=== PATIENT | male | born 1970 | race Caucasian/White ===

== ENCOUNTER 2018-05-16 16:43 | Inpatient (IN) | payer OTHER ==
[~2018-05-16] VITALS: Ht 182.9 cm; Wt 70.7 kg
[2018-05-16] MEDS ORDERED: ONDANSETRON 4 MG INJ IV PRN ×2 (17:00→17:30)
[2018-05-16] MEDS ORDERED: ACETAMINOPHEN 325 MG TAB PO PRN (17:00)
[2018-05-16 17:20] VITALS: Ht 182.9 cm; Wt 70.7 kg
[2018-05-16] MEDS ORDERED: NACL 0.9% 3 ML SYG IV SCH (17:30)
--- NOTE | 2018-05-16 17:54 | HP ---
Date/Time of Note Date/Time of Note DATE: 05/16/18 TIME: 17:39 Assessment/Plan VTE Prophylaxis SCD applied (from Nsg): Yes Pharmacological prophylaxis: NA/contraindicated Pharm contraindication: bleeding Lines/Catheters IV Catheter Type (from Nrsg): [place]ine Lock Assessment/Plan Assessment/Plan 47 yo alcoholic man no major PMH presents with hematemesis and melena #Hematemesis #Melena - Likely upper GI source. - Patient has no stigmata of cirrhosis and supposedly normal INR; esophageal varices unlikely. Based on history I think most likely Marjan-Bowman tears. Possible peptic ulcer disease; although abdomen is completely nontender. - Just in case will start octreotide and protonix gtt. - NPO, IV fluids - GI consulted. #Alcoholism - If labs suspicious for cirrhosis will check RUQ US. - Banana bag - Ativan prn withdrawal. If very high doses will start librium taper. - Last drink last night. - Social work consult #Nicotine use - Patch GI: protonix DVT: SCDs HPI/ROS Admit Date/Time Admit Date/Time 15 April 2018 Hx of Present Illness Mr. Simeon is a pleasant 47 yo alcoholic man who presents with hematemesis and melena. 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 He attributes this to the strain of moving heavy furniture. Vomited about 30 times Monday night. Also developed liquid maroon-colored stool, had several episodes. Monday symptoms had improved but he had PO intolerance; even small volume liquids would cause vomiting. He presented to [facility] Monday. According to verbal s ignout; he was tachy to 131, Hgb was 12.7 INR 1.0. He was started on protonix and octreotide gtt and transferred to [facility] for insurance reasons. The patient drinks heavily; last alcohol was the night prior to admission although he vomited most of it up. Drink malt liquor, on average 10 shots per day. Reports history of alcohol withdrawal seizures but not intubation. He quit for 1.5 years about 2 years ago when a doctor at [facility] told him he had evidence of liver damage. Relapsed a few months ago. ROS Reports one fever the night prior to admission. No chills or night sweats. Reports productive cough for several days. No dyspnea. Denies chest pain/pressure/palpitations. No abdominal pain. No constipation. No dysuria or hematuria. No lightheadedness or vertigo. No vision changes. PMH/Family/Social Past Medical History Alcoholism Medications Current Medications Acetaminophen (Tylenol Tab) 650 mg ER BRIDGE PRN PO .MILD PAIN 1-3 OR TEMP; Start 05/16/18 at 17:00; Stop 05/17/18 at 16:59 IV Flush (NS 3 ml) 3 ml PER PROTOCOL IV ; Start 05/16/18 at 17:30 Ondansetron HCl (Zofran Inj) 4 mg Q6H PRN IV NAUSEA/VOMITING; Start 05/16/18 at 17:30 Octreotide Acetate 1 mg/ Dextrose 100 ml @ 5 mls/hr Q20H IV ; Start 05/16/18 at 18:00; Status UNV Pantoprazole 80 mg/Sodium Chloride 100 ml @ 10 mls/hr Q10H IV ; Start 05/16/18 at 18:00; Status UNV Coded Allergies: No Known Allergy (Unverified , 05/16/18) Past Surgical History Past Surgical Hx: no surgical history Social History 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 Previously rented a house in [place], recently homeless as of 4 days ago. Alcohol Use: heavy (10 shots per day) Smoking Status: Current every day smoker (1 pack per day) Drug Use: marijuana (rarely) Exam/Review of Systems Vital Signs Vitals Vital Signs Date Temp Pulse Resp B/P (MAP) Pulse Ox O2 O2 Flow FiO2 Time Delivery Rate 05/16/18 98.2 94 20 134/91 98 17:20 (105) Exam Exam Gen: Well developed man lying in [place], no acute distress. Eyes: PERRL, no icterus HEENT: Moist mucous membranes. Very poor dentition; almost all teeth have severe caries and he has gingival disease. Neck: No lymphadenopathy, supple. Card: Regular rate and rhythm, no murmurs Pulm: Clear to auscultation bilaterally Abd: Soft, nontender, nondistended. No hepatosplenomegaly. Ext: No cyanosis/clubbing/edema Skin: warm, dry, well perfused. THUAN TAPIA MD May 16, 2018 17:50
[2018-05-16] MEDS ORDERED: LORAZEPAM 2 MG INJ IV PRN (18:00)
[2018-05-16] MEDS ORDERED: MULTIVITAMINS 10 ML, THIAMINE 100 MG, FOLIC ACID 1 MG, MAGNESIUM SULFATE 2 GM in SOD CH... IV ONE (18:00)
[2018-05-16] MEDS ORDERED: OCTREOTIDE 1 MG in DEXTROSE 5% 95 ML IV SCH (18:00)
[2018-05-16] MEDS ORDERED: POTASSIUM CHLORIDE 50 ML IVPB ONE (18:30)
[2018-05-16] MEDS: PANTOPRAZOLE IV 80 MG in SOD CHLORIDE 0.9% 100 ML IV SCH (19:09)
--- NOTE | 2018-05-16 20:45 | ERD ---
ER Documentation Chief Complaint Chief Complaint zeenat lewis from [facility]; blood emesis and stool HPI This is a 47-year-old male who was transferred to be a direct admit from [facility] however no beds were available and therefore came through the emergency department. The patient has a past medical history of alcoholism alcohol withdrawal seizures alcohol cirrhosis and presented to the emergency department brought in by private ambulance after complaining of hematemesis for 1 day. The patient had also developed epigastric pain. The patient did indicate he had been drinking alcohol last drink was at midnight yesterday evening which is roughly 21 hours prior to the arrival at [facility]. They had administered Protonix octreotide and the patient has not had any hematemesis hemoptysis or melanotic stools since then. The patient's INR was 1.0. PT was 12.4. Hemoglobin was 12.7 ROS All systems reviewed and are negative except as per history of present illness. Medications Home Meds No Active Prescriptions or Reported Meds Allergies Allergies: Coded Allergies: No Known Allergy (Unverified , 05/16/18) PMhx/Soc Hx Alcohol Use: Yes Hx Substance Use: No Hx Tobacco Use: No Smoking Status: Current every day smoker (1 pack per day) Physical Exam Vitals Vital Signs Date Temp Pulse Resp B/P (MAP) Pulse Ox O2 O2 Flow FiO2 Time Delivery Rate 05/16/18 98.2 94 20 134/91 98 17:20 (105) Physical Exam Constitutional:Well-developed. Well-nourished. HEENT:Normocephalic. Atraumatic.Pupils were equal round reactive to light. Moist mucous membranes.No tonsillar exudates. No conjunctival pallor Neck: No nuchal rigidity. No lymphadenopathy. No posterior cervical spine tenderness or step-offs. Respiratory: Not using accessory muscles of respiration.Lungs were clear to auscultation bilaterally. No rhonchi. No rales. No wheezing. Cardiovascular: Regular rate regular rhythm.No murmurs. No rubs were appreciated.S1, S2 normal. Distal pulses are palpable 2+ bilaterally. GI: Abdomen was soft. Nontender. Non Distended. No pulsatile abdominal masses or bruits. No rebound. No guarding. Bowel sounds were present and normal. Muscle skeletal: Full range of motion of both the upper and lower extremities bilaterally.Normal muscle tone.No assymetrical calf tenderness or swelling. Skin: No petechia, no purpura. No lesions on the palms or the soles of the feet. No maculopapular rash. NEURO: Patient was alert, awake, orientated x3.No facial droop. Gait not observed as patient felt to weak to ambulate.Speech had regular rate and rhythm. No focal neurological deficits. Result Diagram: 05/16/18 1743 05/16/18 1743 Results 24 hrs Laboratory Tests Test 05/16/18 17:43 White Blood Count 5.1 10^3/ul Red Blood Count 3.37 10^6/ul Hemoglobin 10.7 g/dl Hematocrit 30.9 % Mean Corpuscular Volume 91.7 fl Mean Corpuscular Hemoglobin 31.8 pg Mean Corpuscular Hemoglobin Concent 34.6 g/dl Red Cell Distribution Width 16.3 % Platelet Count 125 10^3/UL Mean Platelet Volume 10.2 fl Immature Granulocytes % 0.400 % Neutrophils % 70.0 % Segmented Neutrophils % (Manual) 71 % Lymphocytes % 18.9 % Lymphocytes % (Manual) 23 % Monocytes % 10.1 % Monocytes % (Manual) 6 % Eosinophils % 0.2 % Basophils % 0.4 % Nucleated Red Blood Cells % 0.0 /100WBC Immature Granulocytes # 0.020 10^3/ul Neutrophils # 3.6 10^3/ul Lymphocytes (Manual) 1.1 10^3/ul Lymphocytes # 1.0 10^3/ul Monocytes # 0.5 10^3/ul Monocytes # (Manual) 0.3 10^3/ul Eosinophils # 0.0 10^3/ul Basophils # 0.0 10^3/ul Nucleated Red Blood Cells # 0.0 10^3/ul Platelet Morphology Comment @See below Hypochromasia 1+ Anisocytosis 1+ Microcytosis 1+ Prothrombin Time 13.0 Sec Prothrombin Time Ratio 1.0 INR International Normalized Ratio 0.97 Activated Partial Thromboplast Time 26.4 Sec Sodium Level 139 mmol/L Potassium Level 2.9 mmol/L Chloride Level 99 mmol/L Carbon Dioxide Level 31 mmol/L Anion Gap 9 Blood Urea Nitrogen 38 mg/dl Creatinine 0.75 mg/dl Est Glomerular Filtrat Rate mL/min > 60 mL/min Glucose Level 101 mg/dl Calcium Level 8.7 mg/dl Phosphorus Level 3.3 mg/dl Magnesium Level 1.5 mg/dl Total Bilirubin 1.4 mg/dl Direct Bilirubin 0.00 mg/dl Indirect Bilirubin 1.4 mg/dl Aspartate Amino Transf (AST/SGOT) 54 IU/L Alanine Aminotransferase (ALT/SGPT) 42 IU/L Alkaline Phosphatase 47 IU/L Total Protein 6.6 g/dl Albumin 3.8 g/dl Globulin 2.80 g/dl Albumin/Globulin Ratio 1.35 Amylase Level 85 U/L Lipase 98 U/L Ethyl Alcohol Level < 10.0 mg/dl Current Medications Medications Dose Sig/Laura Start Time Status Last (Trade) Ordered Route PRN Stop Time Admin Dose Reason Admin Ondansetron 4 mg ER BRIDGE 05/16/18 DC HCl (Zofran PRN IV 17:00 05/16/18 Inj) NAUSEA/VOMITI 17:20 NG 650 mg ER BRIDGE 05/16/18 Acetaminophen PRN PO 17:00 05/17/18 (Tylenol .MILD PAIN 16:59 Tab) 1-3 OR TEMP IV Flush 3 ml PER 05/16/18 (NS 3 ml) PROTOCOL IV 17:30 Ondansetron 4 mg Q6H PRN 05/16/18 HCl (Zofran IV 17:30 Inj) NAUSEA/VOMITI NG Octreotide 100 ml @ 5 Q20H IV 05/16/18 05/16/18 Acetate 1 mls/hr 18:00 19:09 mg/ Dextrose Pantoprazole 100 ml @ Q10H IV 05/16/18 05/16/18 80 mg/Sodium 10 mls/hr 18:00 19:09 Chloride Lorazepam 2 mg Q1H PRN 05/16/18 (Ativan) IV alcohol 18:00 withdrawal symptoms 1,000 ml @ Q2H ONCE 05/16/18 DC Multivitamins 500 mls/hr IV 18:00 05/16/18 10 19:59 ml/Thiamine HCl 100 mg/Folic Acid 1 mg/Magnesium Sulfate 2 gm/ Sodium Chloride Nicotine 1 patch DAILY 05/16/18 (Nicoderm 21 TRANSDERM 18:00 Mg/ 24hr) Sodium 1,000 ml @ [id number] IV 05/16/18 Chloride 75 mls/hr 18:00 Potassium 50 ml @ 50 ONCE ONCE 05/16/18 DC Chloride mls/hr IVPB 18:30 05/16/18 19:29 Procedures/MDM This patient presented to the emergency department to be admitted directly for a gastrointestinal bleed. The patient was hemodynamically stable at this time. IV access had been established. The patient's potassium was low at 2.9. He did receive IV potassium supplementation in the emergency department. The patient's hemoglobin was 10.7. Several hours prior to arrival the patient had hemoglobin of 12.[address] [facility]. Rao kindly came to the bedside and will be admitting the patient. The patient will be going to the telemetry service in serious condition. Departure Diagnosis: Primary Impression: Gastrointestinal hemorrhage GI bleed type/associated pathology: unspecified gastrointestinal hemorrhage type Qualified Codes: K92.2 - Gastrointestinal hemorrhage, unspecified Additional Impression: Hypokalemia Condition: Serious JIMY ALFARO MD May 16, 2018 20:45
[2018-05-16] MEDS: NICOTINE (21 MG/24 HR) PATCH TRANSDERM SCH (22:00)
[2018-05-17] VITALS (21 sets, daily range): BP systolic 100–167; BP diastolic 58–104; PULSE 70–111; RESP 17–24
[2018-05-17] MEDS: SOD CHLORIDE 0.9% 1,000 ML IV SCH ×2 (02:24→07:20)
[2018-05-17] MEDS: PANTOPRAZOLE IV 80 MG in SOD CHLORIDE 0.9% 100 ML IV SCH (04:32)
[2018-05-17] MEDS ORDERED: morphine 2 MG INJ IV PRN (05:30)
[2018-05-17] MEDS: NICOTINE (21 MG/24 HR) PATCH TRANSDERM SCH (09:43)
[2018-05-17] MEDS ORDERED: MAGNESIUM SULFATE 2 GM/50 ML 50 ML IVPB ONE (10:30)
--- NOTE | 2018-05-17 11:00 | PN ---
Date/Time of Note Date/Time of Note DATE: 05/17/18 TIME: 10:57 Assessment/Plan VTE Prophylaxis SCD applied (from Nsg): Yes Pharmacological prophylaxis: NA/contraindicated Pharm contraindication: bleeding Lines/Catheters IV Catheter Type (from Nrsg): Peripheral IV Assessment/Plan Assessment/Plan 47 yo alcoholic man no major PMH presents with hematemesis and melena #Hematemesis #Melena - Likely upper GI source. - Patient has no stigmata of cirrhosis and supposedly normal INR; esophageal varices unlikely. Based on history I think most likely Marjan-Bowman tears. Possible peptic ulcer disease; although abdomen is completely nontender. - On octreotide and protonix gtt. - NPO, IV fluids - GI consulted, plan for EGD today. #Alcoholism - Mild thrombocytopenia with normal INR and albumin. Will check abdominal US for cirrhosis. - Banana bag - Ativan prn withdrawal, not requiring. - Last drink Monday night. - Social work consult #Nicotine use - Patch GI: protonix DVT: SCDs Result Diagram: 05/17/18 0729 05/17/18 07 Subjective 24 Hr Interval Summary Free Text/Dictation Patient reports still having liquid stool last night. Didn't check to see if it was bloody. No alcohol withdrawal symptoms. Has chronic back pain, required IV morphine last night. Plan for EGD today. Exam/Review of Systems Exam Vitals Vital Signs Date Temp Pulse Resp B/P (MAP) Pulse Ox O2 O2 Flow FiO2 Time Delivery Rate 05/17/18 78 09:23 05/17/18 97.6 22 137/95 96 Room Air 07:26 (109) Intake and Output 05/16/18 05/16/18 05/17/18 1515:00 23:00 07:00 OutputOutput Total 350 ml BalanceBalance -350 ml Exam Gen: Well developed man lying in gurney, no acute distress. Eyes: PERRL, no icterus HEENT: Moist mucous membranes. Very poor dentition; almost all teeth have severe caries and he has gingival disease. Neck: No lymphadenopathy, supple. Card: Regular rate and rhythm, no murmurs Pulm: Clear to auscultation bilaterally Abd: Soft, nontender, nondistended. No hepatosplenomegaly. Ext: No cyanosis/clubbing/edema Skin: warm, dry, well perfused. Results Results 24hrs Laboratory Tests Test 05/16/18 17:43 05/17/18 07:29 White Blood Count 5.1 5.0 Red Blood Count 3.37 L 3.31 L Hemoglobin 10.7 L 10.5 L Hematocrit 30.9 L 31.5 L Mean Corpuscular Volume 91.7 95.2 Mean Corpuscular Hemoglobin 31.8 31.7 Mean Corpuscular Hemoglobin Concent 34.6 33.3 Red Cell Distribution Width 16.3 H 16.1 H Platelet Count 125 L 139 L Mean Platelet Volume 10.2 10.9 H Immature Granulocytes % 0.400 0.400 Neutrophils % 70.0 51.9 Segmented Neutrophils % (Manual) 71 Lymphocytes % 18.9 38.0 Lymphocytes % (Manual) 23 Monocytes % 10.1 6.5 Monocytes % (Manual) 6 Eosinophils % 0.2 2.0 Basophils % 0.4 1.2 Nucleated Red Blood Cells % 0.0 0.0 Immature Granulocytes # 0.020 0.020 Neutrophils # 3.6 2.6 Lymphocytes (Manual) 1.1 Lymphocytes # 1.0 1.9 Monocytes # 0.5 0.3 Monocytes # (Manual) 0.3 Eosinophils # 0.0 0.1 Basophils # 0.0 0.1 Nucleated Red Blood Cells # 0.0 0.0 Platelet Morphology Comment @See below Hypochromasia 1+ Anisocytosis 1+ Microcytosis 1+ Prothrombin Time 13.0 Prothrombin Time Ratio 1.0 INR International Normalized Ratio 0.97 Activated Partial Thromboplast Time 26.4 Sodium Level 139 141 Potassium Level 2.9 *L 3.3 L Chloride Level 99 102 Carbon Dioxide Level 31 29 Anion Gap 9 10 Blood Urea Nitrogen 38 H 22 #H Creatinine 0.75 0.72 Est Glomerular Filtrat Rate mL/min > 60 > 60 Glucose Level 101 84 Calcium Level 8.7 8.8 Phosphorus Level 3.3 3.2 Magnesium Level 1.5 L 1.6 L Total Bilirubin 1.4 H 1.3 Direct Bilirubin 0.00 0.00 Indirect Bilirubin 1.4 H 1.3 H Aspartate Amino Transf (AST/SGOT) 54 H 264 #H Alanine Aminotransferase (ALT/SGPT) 42 93 H Alkaline Phosphatase 47 47 Total Protein 6.6 6.7 Albumin 3.8 3.9 Globulin 2.80 2.80 Albumin/Globulin Ratio 1.35 1.39 Amylase Level 85 Lipase 98 Ethyl Alcohol Level < 10.0 H Hemoglobin A1c 5.1 Thyroid Stimulating Hormone (TSH) Pending Medications Medication Current Medications IV Flush (NS 3 ml) 3 ml PER PROTOCOL IV ; Start 05/16/18 at 17:30 Ondansetron HCl (Zofran Inj) 4 mg Q6H PRN IV NAUSEA/VOMITING; Start 05/16/18 at 17:30 Octreotide Acetate 1 mg/ Dextrose 100 ml @ 5 mls/hr Q20H IV Last administered on 05/16/18at 19:09; Admin Dose 5 MLS/HR; Start 05/16/18 at 18:00 Pantoprazole 80 mg/Sodium Chloride 100 ml @ 10 mls/hr Q10H IV Last administered on 05/17/18at 04:32; Admin Dose 10 MLS/HR; Start 05/16/18 at 18:00 Lorazepam (Ativan) 2 mg Q1H PRN IV alcohol withdrawal symptoms; Start 05/16/18 at 18:00 Nicotine (Nicoderm 21 Mg/ 24hr) 1 patch DAILY TRANSDERM Last administered on 05/17/18at 09:43; Admin Dose 1 PATCH; Start 05/16/18 at 18:00 Sodium Chloride 1,000 ml @ 75 mls/hr [id number] IV Last administered on 05/17/18at 02:24; Admin Dose 75 MLS/HR; Start 05/16/18 at 18:00 Magnesium Sulfate 50 ml @ 25 mls/hr ONCE ONCE IVPB ; Start 05/17/18 at 10:30; Stop 05/17/18 at 12:29 Potassium Chloride 100 ml @ 50 mls/hr Q2H IVPB ; Start 05/17/18 at 10:30; Stop 05/17/18 at 14:29 THUAN TAPIA MD May 17, 2018 11:00
--- NOTE | 2018-05-17 12:20 | CONS ---
Assessment/Plan Assessment/Plan Hospital Course (Demo Recall) Summary Assessment and Plan: Assessment: Hematemesis/melena Transaminitis- DF -7.3 -(AST>ALT) Indirect hyperbilirubinemia-resolved Thrombocytopenia Alcohol abuse Current smoker Plan: Continue PPI drip/octreotide drip EGD today pass worker has already been consult patient requesting information on possible alcoholic rehab Endoscopy - risks/benefits/alternatives/indications of procedure and sedation/anesthesia discussed with patient who states understanding and gives informed consent to proceed. Elevated LFTs likely secondary to alcohol abuse however will check hepatitis panel to be thorough Patient seen in collaboration with Dr. Nichols CC: VINCENT NICHOLS MD ; Consultation Date/Type/Reason Admit Date/Time 15 April 2018 Date of Consultation: May 17, 2018 Type of Consult GI Reason for Consultation Hematemesis/melena Date/Time of Note DATE: 05/17/18 TIME: 12:10 Hx of Present Illness This is a 47-year-old male with past medical history of alcoholism, upper GI bleed about a year ago and current smoker who presented to the hospital with complaints of nausea and hematemesis along with melena. Patient states currently he drinks about 1 L of hard alcohol per day has been doing so for the past 6 years prior to that he was drinking beer daily since age of 14. He currently denies nausea/vomiting or abdominal pain no edema noted to lower extremities. Labs today show no significant change in hemoglobin, 10's, platelets are 139, INR is 0.97. Given clinical picture we will proceed with EGD today. I discussed risk/benefits of both sedation and procedure with patient who verbalized understanding and is agreeable to procedure. Review of Systems: A 12 system, review was conducted and is negative except as noted in the HPI or here. Past Medical History Home Meds No Active Prescriptions or Reported Meds Medications Current Medications IV Flush (NS 3 ml) 3 ml PER PROTOCOL IV ; Start 05/16/18 at 17:30 Ondansetron HCl (Zofran Inj) 4 mg Q6H PRN IV NAUSEA/VOMITING; Start 05/16/18 at 17:30 Octreotide Acetate 1 mg/ Dextrose 100 ml @ 5 mls/hr Q20H IV Last administered on 05/16/18at 19:09; Admin Dose 5 MLS/HR; Start 05/16/18 at 18:00 Pantoprazole 80 mg/Sodium Chloride 100 ml @ 10 mls/hr Q10H IV Last administered on 05/17/18at 04:32; Admin Dose 10 MLS/HR; Start 05/16/18 at 18:00 Lorazepam (Ativan) 2 mg Q1H PRN IV alcohol withdrawal symptoms; Start 05/16/18 at 18:00 Nicotine (Nicoderm 21 Mg/ 24hr) 1 patch DAILY TRANSDERM Last administered on 05/17/18at 09:43; Admin Dose 1 PATCH; Start 05/16/18 at 18:00 Sodium Chloride 1,000 ml @ 75 mls/hr [id number] IV Last administered on 05/17/18at 02:24; Admin Dose 75 MLS/HR; Start 05/16/18 at 18:00 Magnesium Sulfate 50 ml @ 25 mls/hr ONCE ONCE IVPB Last administered on 05/17/18at 11:07; Admin Dose 25 MLS/HR; Start 05/17/18 at 10:30; Stop 05/17/18 at 12:29 Potassium Chloride 100 ml @ 50 mls/hr Q2H IVPB ; Start 05/17/18 at 10:30; Stop 05/17/18 at 14:29 Allergies: Coded Allergies: No Known Allergy (Unverified , 05/16/18) Past Surgical History Past Surgical Hx: no surgical history Social History Alcohol Use: heavy (10 shots per day) Smoking Status: Current every day smoker Drug Use: marijuana (rarely) Exam/Review of Systems Exam Vitals Vital Signs Date Temp Pulse Resp B/P (MAP) Pulse Ox O2 O2 Flow FiO2 Time Delivery Rate 05/17/18 98.0 75 22 148/97 96 Room Air 11:47 (114) Intake and Output 05/16/18 05/16/18 05/17/18 1515:00 23:00 07:00 OutputOutput Total 350 ml BalanceBalance -350 ml Exam PHYSICAL EXAMINATION: GENERAL: Well developed, well nourished, alert & oriented x 3, in no acute distress SKIN: No lesions EYES: Pupils equal reactive to light no discharge. EARS/NOSE AND THROAT: Ears normal, nose normal NECK: Supple, no masses CHEST: Inspection within normal limits. CARDIOVASCULAR: Heart: Regular rate and rhythm RESPIRATORY: Lungs clear to auscultation GASTROINTESTINAL AND LIVER: Abdomen: Soft, non tenderness, non-distended, no hernias, no masses, no ascites, no guarding, no rebound tenderness, normoactive bowel sounds. Rectal: Deferred. EXTREMITIES: No cyanosis, clubbing or edema. Results Result Diagram: 05/17/18 0729 05/17/18 0729 Results 24hrs Laboratory Tests Test 05/16/18 17:43 05/17/18 07:29 White Blood Count 5.1 5.0 Red Blood Count 3.37 L 3.31 L Hemoglobin 10.7 L 10.5 L Hematocrit 30.9 L 31.5 L Mean Corpuscular Volume 91.7 95.2 Mean Corpuscular Hemoglobin 31.8 31.7 Mean Corpuscular Hemoglobin Concent 34.6 33.3 Red Cell Distribution Width 16.3 H 16.1 H Platelet Count 125 L 139 L Mean Platelet Volume 10.2 10.9 H Immature Granulocytes % 0.400 0.400 Neutrophils % 70.0 51.9 Segmented Neutrophils % (Manual) 71 Lymphocytes % 18.9 38.0 Lymphocytes % (Manual) 23 Monocytes % 10.1 6.5 Monocytes % (Manual) 6 Eosinophils % 0.2 2.0 Basophils % 0.4 1.2 Nucleated Red Blood Cells % 0.0 0.0 Immature Granulocytes # 0.020 0.020 Neutrophils # 3.6 2.6 Lymphocytes (Manual) 1.1 Lymphocytes # 1.0 1.9 Monocytes # 0.5 0.3 Monocytes # (Manual) 0.3 Eosinophils # 0.0 0.1 Basophils # 0.0 0.1 Nucleated Red Blood Cells # 0.0 0.0 Platelet Morphology Comment @See below Hypochromasia 1+ Anisocytosis 1+ Microcytosis 1+ Prothrombin Time 13.0 Prothrombin Time Ratio 1.0 INR International Normalized Ratio 0.97 Activated Partial Thromboplast Time 26.4 Sodium Level 139 141 Potassium Level 2.9 *L 3.3 L Chloride Level 99 102 Carbon Dioxide Level 31 29 Anion Gap 9 10 Blood Urea Nitrogen 38 H 22 #H Creatinine 0.75 0.72 Est Glomerular Filtrat Rate mL/min > 60 > 60 Glucose Level 101 84 Calcium Level 8.7 8.8 Phosphorus Level 3.3 3.2 Magnesium Level 1.5 L 1.6 L Total Bilirubin 1.4 H 1.3 Direct Bilirubin 0.00 0.00 Indirect Bilirubin 1.4 H 1.3 H Aspartate Amino Transf (AST/SGOT) 54 H 264 #H Alanine Aminotransferase (ALT/SGPT) 42 93 H Alkaline Phosphatase 47 47 Total Protein 6.6 6.7 Albumin 3.8 3.9 Globulin 2.80 2.80 Albumin/Globulin Ratio 1.35 1.39 Amylase Level 85 Lipase 98 Ethyl Alcohol Level < 10.0 H Hemoglobin A1c 5.1 Thyroid Stimulating Hormone (TSH) Pending Medications Medication Current Medications IV Flush (NS 3 ml) 3 ml PER PROTOCOL IV ; Start 05/16/18 at 17:30 Ondansetron HCl (Zofran Inj) 4 mg Q6H PRN IV NAUSEA/VOMITING; Start 05/16/18 at 17:30 Octreotide Acetate 1 mg/ Dextrose 100 ml @ 5 mls/hr Q20H IV Last administered on 05/16/18 19:09; Admin Dose 5 MLS/HR; Start 05/16/18 at 18:00 Pantoprazole 80 mg/Sodium Chloride 100 ml @ 10 mls/hr Q10H IV Last administered on 05/17/18 04:32; Admin Dose 10 MLS/HR; Start 05/16/18 at 18:00 Lorazepam (Ativan) 2 mg Q1H PRN IV alcohol withdrawal symptoms; Start 05/16/18 at 18:00 Nicotine (Nicoderm 21 Mg/ 24hr) 1 patch DAILY TRANSDERM Last administered on 05/17/18 09:43; Admin Dose 1 PATCH; Start 05/16/18 at 18:00 Sodium Chloride 1,000 ml @ 75 mls/hr [id number] IV Last administered on 05/17/18 02:24; Admin Dose 75 MLS/HR; Start 05/16/18 at 18:00 Magnesium Sulfate 50 ml @ 25 mls/hr ONCE ONCE IVPB Last administered on 05/17/18 11:07; Admin Dose 25 MLS/HR; Start 05/17/18 at 10:30; Stop 05/17/18 at 12:29 Potassium Chloride 100 ml @ 50 mls/hr Q2H IVPB ; Start 05/17/18 at 10:30; Stop 05/17/18 at 14:29 CARI GARZA May 17, 2018 12:20
[2018-05-17] MEDS: POTASSIUM CHLORIDE 100 ML IVPB SCH ×2 (12:30→12:38)
--- NOTE | 2018-05-17 15:14 | PREAC ---
Date/Time of Note Date/Time of Note DATE: 05/17/18 TIME: 15:12 Anesthesia Eval and Record Evaluation Time Pre-Procedure Interview DATE: 05/17/18 TIME: 15:12 Age 47 Sex male NPO: 8 hrs Preoperative diagnosis HEMATEMESIS Planned procedure EGD Past Medical History Past Medical History: Includes Neuro: Seizure disorder Hepatic: Alcohol abuse, Cirrhosis Heme: Anemia Surgery & Anesthesia Issues No known issue Meds Anticoagulation: No Beta Denice within 24 hr: No Reason Beta Denice not given: Pt. not on B-Denice No Active Prescriptions or Reported Meds Current Medications IV Flush (NS 3 ml) 3 ml PER PROTOCOL IV ; Start 05/16/18 at 17:30 Ondansetron HCl (Zofran Inj) 4 mg Q6H PRN IV NAUSEA/VOMITING; Start 05/16/18 at 17:30 Octreotide Acetate 1 mg/ Dextrose 100 ml @ 5 mls/hr Q20H IV Last administered on 05/16/18at 19:09; Admin Dose 5 MLS/HR; Start 05/16/18 at 18:00 Pantoprazole 80 mg/Sodium Chloride 100 ml @ 10 mls/hr Q10H IV Last administered on 05/17/18 04:32; Admin Dose 10 MLS/HR; Start 05/16/18 at 18:00 Lorazepam (Ativan) 2 mg Q1H PRN IV alcohol withdrawal symptoms Last admin istered on 05/17/18at 12:38; Admin Dose 2 MG; Start 05/16/18 at 18:00 Nicotine (Nicoderm 21 Mg/ 24hr) 1 patch DAILY TRANSDERM Last administered on 05/17/18 09:43; Admin Dose 1 PATCH; Start 05/16/18 at 18:00 Sodium Chloride 1,000 ml @ 75 mls/hr [id number] IV Last administered on 05/17/18 02:24; Admin Dose 75 MLS/HR; Start 05/16/18 at 18:00 Meds reviewed: Yes Allergies Coded Allergies: No Known Allergy (Unverified , 05/16/18) Allergies Reviewed: Yes Labs/Studies Labs Reviewed: Reviewed by anesthesiologist Result Diagram: 05/17/18 0729 05/17/18 0729 Laboratory Tests 05/17/18 07:29 Blood Bank Test 05/16/18 17:43 Antibody Screen NEGATIVE Blood Type A POSITIVE test: N/A Pre-procedure Exam Last vitals Vital Signs Date Temp Pulse Resp B/P (MAP) Pulse Ox O2 O2 Flow FiO2 Time Delivery Rate 05/17/18 76 12:51 05/17/18 98.0 22 148/97 96 Room Air 11:47 (114) Airway: Adequate mouth opening, Adequate thyromental dist Mallampati: Mallampati I Teeth: Normal Lung: Normal Heart: Normal ASA Physical Status ASA physical status: 3 Emergency: None Planned Anesthetic General/MAC: MAC Planned Pain Management Parenteral pain med Pre-operative Attestations Prior to commencing anesthesia and surgery, the patient was re-evaluated, there was verification of: *The patient's identity *The results of appropriate recent lab work and preoperative vital signs *The above evaluation not changing prior to induction *Anesthetic plan, risk benefits, alternative and complications discussed with patient/family; questions answered; patient/family understands, accepts and wishes to proceed. JASON HEARD May 17, 2018 15:14
[2018-05-17] MEDS ORDERED: PROPOFOL 40 ML ONE (15:21)
[2018-05-17] MEDS ORDERED: LIDOCAINE 2% (SDV) 5 ML INJ ONE (15:21)
--- NOTE | 2018-05-17 15:23 | HPN ---
Date/Time of Note Date/Time of Note DATE: 05/17/18 TIME: 15:23 Interval H&P Admission Note Pt. seen H&P reviewed: No system changes CHERIE ALMENDAREZ May 17, 2018 15:23
[2018-05-17] MEDS ORDERED: hydrALAzine 20 MG INJ IV PRN (15:30)
[2018-05-17] MEDS ORDERED: ONDANSETRON 4 MG INJ IV PRN (15:30)
[2018-05-17] MEDS ORDERED: METOCLOPRAMIDE 10 MG INJ IV PRN (15:30)
[2018-05-17] MEDS ORDERED: FENTAnyl 50 MCG/ML VIAL IV PRN (15:30)
[2018-05-17] MEDS ORDERED: EPHEDrine SULFATE 50 MG/5 ML SYG IV PRN (15:30)
[2018-05-17] MEDS ORDERED: LABETALOL HCL 20MG INJ IV PRN (15:30)
--- NOTE | 2018-05-17 15:51 | PAC ---
Date/Time of Note Date/Time of Note DATE: 05/17/18 TIME: 15:50 Post-Anesthesia Notes Post-Anesthesia Note Last documented vital signs Vital Signs Date Temp Pulse Resp B/P (MAP) Pulse Ox O2 O2 Flow FiO2 Time Delivery Rate 05/17/18 98.7 74 23 100/65 100 Nasal 15:50 (77) Cannula 05/17/18 97.9 15:24 05/17/18 12 15:12 Activity: WNL Respiratory function: WNL Cardiovascular function: WNL Mental status: Baseline Pain reasonably controlled: Yes Hydration appropriate: Yes Nausea/Vomiting absent: Yes JASON EHARD May 17, 2018 15:51
[2018-05-17] MEDS: PANTOPRAZOLE 40 MG INJ IV SCH (18:45)
[2018-05-18] VITALS (9 sets, daily range): BP systolic 103–165; BP diastolic 63–92; PULSE 77–96; RESP 19–22
[2018-05-18] MEDS: PANTOPRAZOLE 40 MG INJ IV SCH ×2 (05:48→18:45)
[2018-05-18] MEDS: NICOTINE (21 MG/24 HR) PATCH TRANSDERM SCH (09:55)
--- NOTE | 2018-05-18 14:51 | PN ---
Date/Time of Note Date/Time of Note DATE: 05/18/18 TIME: 14:34 Assessment/Plan VTE Prophylaxis Risk score (from Ns)>0 risk: 1 SCD applied (from Ns): No SCD contraindicated: low risk/ambulating Pharmacological prophylaxis: heparin Lines/Catheters IV [facility] Saline Lock Assessment/Plan Assessment/Plan Assessment: Hematemesis/melena S/p EGD 05/17/18 -Severe distal esophagitis - biopsied -Gastritis -Duodenitis Transaminitis- DF -7.3 -(AST>ALT) Indirect hyperbilirubinemia-resolved Thrombocytopenia Alcohol abuse Current smoker Plan: Continue Protonix BID Start Carafate Review results of pathology when available Smoking cessation Quit Alcohol - rehab 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 Nichols Subjective: Patient is doing well . Denies abdominal pain, nausea, melena or hematemesis. H gb is stable. Patient is tolerating the diet well. Results of EGD reviewed with the patient. Discussed the dietary modifications and treatment regimen. Await results of pathology. Patient is awaiting for placement to rehab. PHYSICAL EXAMINATION: GENERAL: Well developed, well nourished, alert & oriented x 3, in no acute distress SKIN: No lesions EYES: Pupils equal reactive to light no discharge. EARS/NOSE AND THROAT: Ears normal, nose normal NECK: Supple, no masses CHEST: Inspection within normal limits. CARDIOVASCULAR: Heart: Regular rate and rhythm RESPIRATORY: Lungs clear to auscultation GASTROINTESTINAL AND LIVER: Abdomen: Soft, non tenderness, non-distended, no hernias, no masses, no ascites, no guarding, no rebound tenderness, normoactive bowel sounds. Rectal: Deferred. EXTREMITIES: No cyanosis, clubbing or edema. Result Diagram: 05/17/18 0729 05/17/18 07 CC: CHERIE ALMENDAREZ ; Exam/Review of Systems Exam Vitals Vital Signs Date Temp Pulse Resp B/P (MAP) Pulse Ox O2 O2 Flow FiO2 Time Delivery Rate 05/18/18 77 12:10 05/18/18 97.6 20 103/70 96 Room Air 11:31 (81) 05/17/18 12 15:12 Intake and Output 05/17/18 05/17/18 05/18/18 1515:00 23:00 07:00 IntakeIntake Total 515 ml 420 ml 500 ml BalanceBalance 515 ml 420 ml 500 ml Medications Medication Current Medications IV Flush (NS 3 ml) 3 ml PER PROTOCOL IV ; Start 05/16/18 at 17:30 Ondansetron HCl (Zofran Inj) 4 mg Q6H PRN IV NAUSEA/VOMITING; Start 05/16/18 at 17:30 Lorazepam (Ativan) 2 mg Q1H PRN IV alcohol withdrawal symptoms Last a dministered on 05/17/18at 12:38; Admin Dose 2 MG; Start 05/16/18 at 18:00 Nicotine (Nicoderm 21 Mg/ 24hr) 1 patch DAILY TRANSDERM Last administered on 05/18/18 09:55; Admin Dose 1 PATCH; Start 05/16/18 at 18:00 Pantoprazole (Protonix Iv) 40 mg BID@,18 IV Last administered on 05/18/18 05:48; Admin Dose 40 MG; Start 05/17/18 at 18:00 AIDAN CHRIS NP May 18, 2018 14:49
--- NOTE | 2018-05-18 15:22 | PN ---
Date/Time of Note Date/Time of Note DATE: 05/18/18 TIME: 15:19 Assessment/Plan VTE Prophylaxis Risk score (from Nsg)>0 risk: 1 SCD applied (from Ns): No SCD contraindicated: low risk/ambulating Pharmacological prophylaxis: NA/contraindicated Pharm contraindication: low risk/ambulating Lines/Catheters IV C[facility] Type (from [facility]): Saline Lock Assessment/Plan Assessment/Plan 47 yo alcoholic man no major PMH presents with hematemesis and melena #Hematemesis #Melena - EGD 06/16 with esophagitis. - Continue PPI - Now tolerating regular diet. #Alcoholism - Mild thrombocytopenia with normal INR and albumin. Will check abdominal US for cirrhosis. - Banana bag - Ativan prn withdrawal, not requiring. - Last drink Monday night. - Social work consult - He did require one dose of Ativan yesterday. Patient is very concerned about withdrawal and [place] very [place] away. Will monitor overnight, likely discharge in AM. #Nicotine use - Patch GI: protonix DVT: SCDs Dispo: Anticipate discharge tomorrow. Result Diagram: 05/17/18 0729 05/17/18 0729 Subjective 24 Hr Interval Summary Free Text/Dictation Patient feeling well, tolerating diet. No complaints. No evidence of withdrawal symptoms. Exam/Review of Systems Exam Vitals Vital Signs Date Temp Pulse Resp B/P (MAP) Pulse Ox O2 O2 Flow FiO2 Time Delivery Rate 05/18/18 77 12:10 05/18/18 97.6 20 103/70 96 Room Air 11:31 (81) 05/17/18 12 15:12 Intake and Output 05/17/18 05/17/18 05/18/18 1515:00 23:00 07:00 IntakeIntake Total 515 ml 420 ml 500 ml BalanceBalance 515 ml 420 ml 500 ml Exam Gen: Well developed man lying in gurney, no acute distress. Eyes: PERRL, no icterus HEENT: Moist mucous membranes. Very poor dentition; almost all teeth have severe caries and he has gingival disease. Neck: No lymphadenopathy, supple. Card: Regular rate and rhythm, no murmurs Pulm: Clear to auscultation bilaterally Abd: Soft, nontender, nondistended. No hepatosplenomegaly. Ext: No cyanosis/clubbing/edema Skin: warm, dry, well perfused. Medications Medication Current Medications IV Flush (NS 3 ml) 3 ml PER PROTOCOL IV ; Start 05/16/18 at 17:30 Ondansetron HCl (Zofran Inj) 4 mg Q6H PRN IV NAUSEA/VOMITING; Start 05/16/18 at 17:30 Lorazepam (Ativan) 2 mg Q1H PRN IV alcohol withdrawal symptoms Last administered on 05/17/18at 12:38; Admin Dose 2 MG; Start 05/16/18 at 18:00 Nicotine (Nicoderm 21 Mg/ 24hr) 1 patch DAILY TRANSDERM Last administered on 05/18/18at 09:55; Admin Dose 1 PATCH; Start 05/16/18 at 18:00 Pantoprazole (Protonix Iv) 40 mg BID@06,18 IV Last administered on 05/18/18at 05:48; Admin Dose 40 MG; Start 05/17/18 at 18:00 Sucralfate (Carafate Susp) 1 gm QID PO ; Start 05/18/18 at 15:00 THUAN TAPIA MD May 18, 2018 15:22
[2018-05-18] MEDS: SUCRALFATE (100 MG/ML) 10ML CUP PO SCH ×3 (15:50→21:13)
[2018-05-18] MEDS ORDERED: PANT40TA4 PO (16:12)
[2018-05-18] MEDS ORDERED: CARAS PO (16:12)
--- NOTE | 2018-05-18 16:15 | PDOCDIS ---
Discharge Instructions DIAGNOSIS Discharge Diagnosis Ulcerative esophagitis CONDITION [id number] Patient Condition: Mrkcm2y Good HOME CARE INSTRUCTIONS: [id number] Diet Instructions: [id number] Regular ACTIVITY: [id number] Activity Restrictions: [id number] No Restrictions FOLLOW UP/APPOINTMENTS Follow-up Plan 1. Take all medications as prescribed. 2. Call Dr. Nichols's office next week to follow up the results of your biopsy. 3. Return to the emergency room for vomiting blood. 4. You may have dark stools for a few more days, this is normal and should not be concerning. 5. Completely abstain from alcohol. THUAN TAPIA MD May 18, 2018 16:15
[2018-05-18] MEDS ORDERED: LORAZEPAM 2 MG INJ IV STA (16:18)
--- NOTE | 2018-05-18 16:34 | EN ---
Date/Time of Note Date/Time of Note DATE: 05/18/18 TIME: 16:30 Event Note Medicine Medicine Event Note This morning on exam patient requested to stay another night because he was concerned about seizures. He had no signs or symptoms of alcohol withdrawal so I chose to hold off on Librium taper. However later in the afternoon the nurse told me the patient was asking to go home. On my exam the patient was up, walking around partially dressed, awake and alert. I placed discharge orders. Within minutes, informed that patient was on the ground. On my exam the patient was face down with rhythmic, jerking movements of arms and snorting respirations. Lasted less than 2 minutes total. I ordered 2 mg IV Ativan but before it was given this seizure-like activity broke and patient was making eye contact and purposeful movements. While protecting his C-spine, he was placed back in bed. He did appear to have significant postictal confusion and was aiming punches at staff. Placed in restraints. Blood sugar was 120s. He did have a lump on his left temporal scalp. He will be taken for CT head and CT C spine. THUAN TAPIA MD May 18, 2018 16:34
[2018-05-18] MEDS: CHLORDIAZEPOXIDE 25 MG CAP PO SCH ×2 (18:45→21:13)
[2018-05-19] VITALS: BP 126/87; PULSE 72; PULSE 88; RESP 19
[2018-05-19 04:00] VITALS: BP 144/74; PULSE 64; RESP 18
[2018-05-19 04:12] VITALS: PULSE 73
[2018-05-19] MEDS: PANTOPRAZOLE 40 MG INJ IV SCH (06:23)
[2018-05-19 07:41] VITALS: BP 113/69; PULSE 78; RESP 17
[2018-05-19] MEDS: NICOTINE (21 MG/24 HR) PATCH TRANSDERM SCH (08:05)
[2018-05-19] MEDS: SUCRALFATE (100 MG/ML) 10ML CUP PO SCH (08:05)
[2018-05-19] MEDS: CHLORDIAZEPOXIDE 25 MG CAP PO SCH (08:05)
[2018-05-19 08:13] VITALS: PULSE 72
--- NOTE | 2018-05-19 14:33 | DS ---
Date/Time of Note Date/Time of Note DATE: 05/19/18 TIME: 14:28 Discharge Summary Admission/Discharge Info Admit Date/Time May 16, 2018 at 16:52 Discharge Date/Time May 19, 2018 at 11:03 Discharge Diagnosis Ulcerative esophagitis Patient Condition: Fair Consults Dr. Molina, gastroenterology Procedures 05/17 EGD Hx of Present Illness Mr. Simeon is a pleasant 47 yo alcoholic man who presents with hematemesis and melena. He was in his usual state of health until Monday night (2 days [employer]) when he suddenly developed violent vomiting, initially liquid, then dry heaving, then streaked with blood. He attributes this to the strain of moving heavy furniture. Vomited about 30 times Monday night. Also developed liquid maroon-colored stool, had several episodes. Monday symptoms had improved but he had PO intolerance; even small volume liquids would cause vomiting. He presented to [facility] Monday. According to verbal signout; he was tachy to 131, Hgb was 12.7 INR 1.0. He was started on protonix and octreotide gtt and transferred to [facility] for insurance reasons. The patient drinks heavily; last alcohol was the night prior to admission although he vomited most of it up. Drink malt liquor, on average 10 shots per day. Reports history of alcohol withdrawal seizures but not intubation. He quit for 1.5 years about 2 years ago when a doctor at [facility] told him he had evidence of liver damage. Relapsed a few months ago. Hospital Course The patient was taken for EGD on 05/17 which showed moderate to severe esophagitis. Biopsy confirmed Sullivan's esophagus. No active bleeding and Hgb remained stable during hospitalization on PPI BID and carafate, which he will be discharged on. Of note, the patient did have a seizure the night of 05/18. Apparently he has had several alcohol withdrawal seizures in the past. I checked on the patient multiple times per day during this hospitalization and he had no signs or sympt oms of alcohol withdrawal, so I chose to hold off on Librium taper. Late in the afternoon of 05/17 the nurse told me the patient was asking to go home. On my exam the patient was up, walking around partially dressed, awake and alert. I placed discharge orders. Within minutes, I was informed that patient was on the ground. On my exam the patient was face down with rhythmic, jerking movements of arms and snorting respirations. Lasted less than 2 minutes total. I ordered 2 mg IV Ativan but before it was given this seizure-like activity broke and patient was making eye contact and purposeful movements. While protecting his C-spine, he was placed back in bed. He did appear to have significant postictal confusion and was aiming punches at staff. Placed in restraints. Taken for CT head and C spine which were normal. The morning of 05/19 requested discharge. I warned him of the possibility of f uture alcohol withdrawal seizures and he still wanted to leave, after expressing understanding. I discharged him on a Librium taper. Home Meds Active Scripts Sucralfate* (Carafate*) 1 Gm/10 Ml Susp, 1 GM PO QID, #80 EA Prov:THUAN TAPIA MD 05/18/18 Pantoprazole* (Pantoprazole*) 40 Mg Tablet., 40 MG PO BID, #80 TAB Prov:THUAN TAPIA MD 05/18/18 Follow-up Plan 1. Take all medications as prescribed. 2. Call Dr. Nichols's office next week to follow up the results of your biopsy. 3. Return to the emergency room for vomiting blood. 4. You may have dark stools for a few more days, this is normal and should not be concerning. 5. Completely abstain from alcohol. Primary Care Provider Not On Staff Doctor Time spent on discharge: > 30 minutes Pending Labs Laboratory Tests Test 05/18/18 16:23 Bedside Glucose 125 mg/dL (70-220) THUAN TAPIA MD May 19, 2018 14:33
== END 2018-05-19 11:03 | disposition home or self-care (01) | DRG 378 ==
LOC: E/R 16:43 → TEL 16:52
PROVIDERS: ADMIT Internal Medicine; ATTEND Internal Medicine
PROC: 0DB78ZX Excision of Stomach, Pylorus, Via Natural or Artificial Opening Endoscopic, Diagnostic (ICD-10-PCS; principal; 2018-05-17 17:00)
DX: K92.0 Hematemesis (principal); G40.89 Other seizures; K92.1 Melena; Z78.1 Physical restraint status; K20.9 Esophagitis, unspecified; F10.10 Alcohol abuse, uncomplicated; K29.70 Gastritis, unspecified, without bleeding; K29.80 Duodenitis without bleeding; Z72.0 Tobacco use; E87.6 Hypokalemia; D69.6 Thrombocytopenia, unspecified; F10.20 Alcohol dependence, uncomplicated; Y90.0 Blood alcohol level of less than 20 mg/100 ml; E80.6 Other disorders of bilirubin metabolism
CPT/HCPCS: 70450; 71045; 72125; 76705; 80053; 80307; 82150; 82962; 83036; 83690; 83735; 84100; 84443; 85025; 85610; 85730; 86704; 86803; 86850; 86900; 86901; 87340; 88305; 88312; 88313; C9113; J0360; J2060; J2270; J2354; J3411; J3475; J3480; J7030